=== PATIENT | female | born 1965 | race Caucasian/White ===

== ENCOUNTER 2016-04-10 15:52 | Emergency (ER) | payer OTHER ==
[2016-04-10] MEDS ORDERED: HYDROmorphone HCL 1 MG/ML SYRINGE (J1170) As Ordered ONE (20:50)
[2016-04-10] MEDS ORDERED: traMADol 50 MG TAB As Ordered ONE (22:33)
--- NOTE | 2016-04-10 22:42 | EDDOCDS ---
Nurse's Notes [facility] Name: Kimberly Houston Age: 50 yrs Sex: Female : 1965 Arrival Date: 04/10/2016 Time: 15:52 Bed I8 / 16 Private MD: Other - Complete Info On Cds Diagnosis: Muscle spasm of back Presentation: 04/10 16:31 Presenting complaint: Patient states: I sneezed now I can hardly move, I felt a small [facility] pain at the time (noonish) and it has gotten progressively worse. Acute neurological deficits are not present. Mechanism of Injury: No Mechanism of Injury. Adult Sepsis Screening: Patient has new or worsening altered mentation (1 point). Patient has a respiratory rate of greater than or equal to 22 (1 point). Systolic blood pressure is less than or equal to 100 (1 point). Patient has a qSOFA score of 0- Negative Sepsis Screen. Suicide/Homicide risk assessment- the patient denies having any suicidal and/or homicidal ideations and does not present with any other emotional, behavioral or mental health complaints. 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 Transition of care: patient was not received from another setting of care. 16:31 Acuity: VARUN Level 3 [facility] 16:31 Method Of Arrival: Walkin/Carried/Asstd [facility] Triage Assessment: 16:38 General: Appears in no apparent distress, uncomfortable, Behavior is cooperative, cjh pleasant. Pain: Location: back Pain currently is 9 out of 10 on a pain scale. Pain does not radiate. HIV screening NA for this visit. Neurological: No deficits noted. Respiratory: No deficits noted. Airway is patent Respiratory effort is even, unlabored, Respiratory pattern is regular, symmetrical. Derm: Skin is pink, warm & dry. Musculoskeletal: Range of motion intact in all extremities. moves slowly leans to left. 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 Lantus 42 units twice daily Sub-Q (Last dose: 04/10/2016 10:00) 2. Glimepiride Unknown Oral 1 tab twice a day - PMHx: Diabetes - IDDM: controlled; DJD; - PSHx: fusion to lower back; Tubal ligation; - Social history: Smoking status: Patient states former smoker of tobacco. No barriers to communication noted. - Family history: Not pertinent. - : The pt / caregiver states he / she is not on anticoagulants. Home medication list is obtained from the patient. - Exposure Risk Screening:: None identified. Screenin:13 Screening information is obtained from the patient. Fall risk: No risks identified. [facility] Assistance ADL's: requires no assistance with activities of daily living. Abuse/DV Screen: The patient / caregiver reports he/she is: not in a situation that causes fear, pain or injury. Nutritional screening: No deficits noted. Advance Directives: There is no active DNR order. home support is adequate. Assessment: 19:13 General: Appears in no apparent distress, uncomfortable, Behavior is appropriate for [facility] age, cooperative. Pain: Location: back Pain currently is 9 out of 10 on a pain scale. Respiratory: Airway is patent Respiratory effort is even, unlabored, Respiratory pattern is regular, symmetrical. Derm: Skin is pink, warm & dry. Musculoskeletal: Range of motion intact in all extremities. moving slowly due to back pain, states unable to find position of comfort. 20:56 General: Pt laying uncomfortably in bed. Pt medicated per orders. Aware of plan for ld5 xray. Call varma within reach. Will continue to monitor. 21:37 General: returned from X-Ray, states pain is much improved, resting on stretcher, [facility] awaiting results. Vital Signs: 15:54 BP 209 / 80 RA Sitting (auto/lg); Pulse 95 RA; Resp 18 S; Temp 97.5(O); Pulse Ox 99% on mt4 R/A; Weight 79.38 kg; Height 5 ft. 4 in. (162.56 cm) (R); Pain 8/10; 19:25 BP 158 / 84 (man/); Pulse 80; Resp 20; Temp 99.1(TE); Pulse Ox 99% on R/A; Pain 9/10; kb5 21:37 BP 165 / 79; Pulse 74; Resp 16; Temp 99; Pulse Ox 96% ; Pain 4/10; cjh 22:29 BP 135 / 68; Pulse 79; Resp 18; Temp 98.1(TE); Pulse Ox 98% on R/A; Pain 4/10; albin 15:54 Body Mass Index 30.04 (79.38 kg, 162.56 cm) mt4 Vitals: 15:54 Log In Time: April 10, 2016 at 15:52. mt4 ED Course: 15:53 Patient visited by Mikayla Briones. mt4 15:53 Patient moved to Waiting mt4 15:54 Other - Complete Info On Cds is Private Physician. mt4 15:54 Patient moved to Pre RCE mt4 16:33 Triage Initiated [facility] 19:06 Patient moved to I8 / 16 cz 19:13 Patient visited by Basilia Villanueva,MANNIE. cj 19:13 The patient / caregiver is instructed regarding the plan of care and ED course. cjh 19:26 Patient visited by Andrei Tijerina PCA. kb5 20:11 Patient visited by Andrei Tijerina PCA. kb5 20:42 Danilo Taveras DO is Attending Physician. cs11 20:42 Patient visited by Danilo Taveras DO. cs11 20:56 Patient visited by Aleyda Zuñiga RN. ld5 21:37 Patient visited by Basilia Villanueva RN. cjh 22:29 Patient visited by Karyna Mock PCA. albin 22:39 No IV's were initiated during this patient's visit. No procedures done that require mb9 assistance. Administered Medications: 20:55 Drug: Dilaudid - HYDROmorphone 1 mg [hydromorphone 1 mg/mL injection syringe (1 mL)] ld5 Route: IM; Site: left gluteus; 21:37 Follow up: Response: Confirmed pt not driving.; No Adverse Reaction; Pain is decreased [facility] 22:39 Drug: traMADol 50mg- 4 pack 1 packets [tramadol 50 mg tablet (1 tabs)] {Co-Signature: lucero [email or web address] (Cristina Valle RN).} Route: PO; Order Results: There are currently no results for this order. Outcome: 22:15 Discharge ordered by Provider. cs11 22:39 Discharge Assessment: Patient awake, alert and oriented x 3. No cognitive and/or mb9 functional deficits noted. Patient verbalized understanding of disposition instructions. patient administered narcotics - yes. Pt provided with safe discharge. The following High Risk Discharge criteria are identified: None. Discharged to home ambulatory, with significant other. Condition: good Condition: stable Condition: improved. Discharge instructions given to patient, Instructed on discharge instructions, follow up and referral plans. medication usage, no driving heavy equipment, Demonstrated understanding of instructions, medications, Pt was receptive of discharge instructions/ teaching. No special radiology studies were completed. Property :Personal belongings accompany Pt. 22:41 Patient left the ED. mb9 Signatures: Hardy Norton, RN RN cz Andrei Tijerina, LEAN FACILITATOR LEAN FACILITATOR kb5 Mikayla Briones mt4 Aleyda Zuñiga,RN RN ld5 Karyna Mock, LEAN FACILITATOR LEAN FACILITATOR albin Basilia Villanueva,RN RN [facility] Danilo Taveras, DO cs11 David RitchieRN RN mb9 Cristina Valle RN [email or web address] MTDD
--- NOTE | 2016-04-10 22:42 | EDDOCDS ---
Physician Documentation [facility] Name: Kimberly Houston Age: 50 yrs Sex: Female : 1965 Arrival Date: 04/10/2016 Time: 15:52 Bed I8 / 16 Private MD: Other - Complete Info On Cds Disposition: 04/10/16 22:15 Discharged to Home/Self Care. Impression: Muscle spasm of back. - Condition is Stable. - Medication Reconciliation, Local Pharmacy Hours form. - Follow up: Private Physician; When: Call to arrange an appointment; Reason: Recheck today's complaints. - Problem is an ongoing problem. - Symptoms have improved. Historical: - Allergies: NSAIDS (can't take due to colitis); - Home Meds: 1. Lantus 42 units twice daily Sub-Q (Last dose: 04/10/2016 10:00) 2. Glimepiride Unknown Oral 1 tab twice a day - PMHx: Diabetes - IDDM: controlled; DJD; - PSHx: fusion to lower back; Tubal ligation; - Social history: Smoking status: Patient states former smoker of tobacco. No barriers to communication noted. - Family history: Not pertinent. - : The pt / caregiver states he / she is not on anticoagulants. Home medication list is obtained from the patient. - Exposure Risk Screening:: None identified. 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 4 in. (162.56 cm) (R); Pain 8/10; 19:25 BP 158 / 84 (man/); Pulse 80; Resp 20; Temp 99.1(TE); Pulse Ox 99% on R/A; Pain 9/10; kb5 21:37 BP 165 / 79; Pulse 74; Resp 16; Temp 99; Pulse Ox 96% ; Pain 4/10; cjh 22:29 BP 135 / 68; Pulse 79; Resp 18; Temp 98.1(TE); Pulse Ox 98% on R/A; Pain 4/10; albin 15:54 Body Mass Index 30.04 (79.38 kg, 162.56 cm) mt4 MDM: 20:46 Dilaudid - HYDROmorphone 1 mg IM once ordered. cs11 20:48 Spine, Lumbosacral, Partial Ordered. EDMS 22:32 traMADol 50mg- 4 pack 1 packets PO once; Dispense with patient. Take per package cs11 instructions. ordered. Administered Medications: 20:55 Drug: Dilaudid - HYDROmorphone 1 mg [hydromorphone 1 mg/mL injection syringe (1 mL)] ld5 Route: IM; Site: left gluteus; 21:37 Follow up: Response: Confirmed pt not driving.; No Adverse Reaction; Pain is decreased [facility] 22:39 Drug: traMADol 50mg- 4 pack 1 packets [tramadol 50 mg tablet (1 tabs)] {Co-Signature: lucero [email or web address] (Cristina Valle RN).} Route: PO; Signatures: Dispatcher [employer] EDMI Basilia Villanueva RN RN [facility] Danilo Taveras DO DO cs11 David Ritchie RN RN mb9 Aleyda Zuñiga RN ld5 Cristina Valle RN [email or web address] MTDD
--- NOTE | 2016-04-11 16:13 | REP ---
Lumbar spine three views AP and lateral projections: Comparison is 11/01/2011. Surgical fusion at L4-L5 and S1 is again noted, unchanged. Ligation clips are again noted in the pelvis, unchanged. Vertebral body heights, interspacing alignment otherwise normal and unchanged. There is a small degenerative disc calcification at D12-L1 and is compatible with degenerative disc disease. This is unchanged. The pedicles, facets and sacroiliac articulations are otherwise unremarkable. Signed by Sergio Connolly MD 04/11/2016 04:04 P
--- NOTE | 2016-04-12 23:43 | EDDOCDS ---
Physician Documentation [facility] Name: Kimberly Houston Age: 50 yrs Sex: Female : 1965 Arrival Date: 04/10/2016 Time: 15:52 Bed I8 / 16 Private MD: Other - Complete Info On Cds Disposition: 04/10/16 22:15 Discharged to Home/Self Care. Impression: Muscle spasm of back. - Condition is Stable. - Medication Reconciliation, Local Pharmacy Hours form. - Follow up: Private Physician; When: Call to arrange an appointment; Reason: Recheck today's complaints. - Problem is an ongoing problem. - Symptoms have improved. Historical: - Allergies: NSAIDS (can't take due to colitis); - Home Meds: 1. Lantus 42 units twice daily Sub-Q (Last dose: 04/10/2016 10:00) 2. Glimepiride Unknown Oral 1 tab twice a day - PMHx: Diabetes - IDDM: controlled; DJD; - PSHx: fusion to lower back; Tubal ligation; - Social history: Smoking status: Patient states former smoker of tobacco. No barriers to communication noted. - Family history: Not pertinent. - : The pt / caregiver states he / she is not on anticoagulants. Home medication list is obtained from the patient. - Exposure Risk Screening:: None identified. 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 4 in. (162.56 cm) (R); Pain 8/10; 19:25 BP 158 / 84 (man/); Pulse 80; Resp 20; Temp 99.1(TE); Pulse Ox 99% on R/A; Pain 9/10; kb5 21:37 BP 165 / 79; Pulse 74; Resp 16; Temp 99; Pulse Ox 96% ; Pain 4/10; cjh 22:29 BP 135 / 68; Pulse 79; Resp 18; Temp 98.1(TE); Pulse Ox 98% on R/A; Pain 4/10; albin 15:54 Body Mass Index 30.04 (79.38 kg, 162.56 cm) mt4 MDM: 20:46 Dilaudid - HYDROmorphone 1 mg IM once ordered. cs11 20:48 Spine, Lumbosacral, Partial Ordered. EDMS 22:32 traMADol 50mg- 4 pack 1 packets PO once; Dispense with patient. Take per package cs11 instructions. ordered. 04/11 05:07 [facility] Payment Agreement was scanned into [employer] and attached to record. [facility] 05:07 Financial registration complete. gjb 16:12 T-Sheet-- Draft Copy was scanned into [employer] and attached to record. klr Administered Medications: 04/10 20:55 Drug: Dilaudid - HYDROmorphone 1 mg [hydromorphone 1 mg/mL injection syringe (1 mL)] ld5 Route: IM; Site: left gluteus; 21:37 Follow up: Response: Confirmed pt not driving.; No Adverse Reaction; Pain is decreased [facility] 22:39 Drug: traMADol 50mg- 4 pack 1 packets [tramadol 50 mg tablet (1 tabs)] {Co-Signature: lucero [email or web address] (Cristina Valle RN).} Route: PO; Signatures: Dispatcher [employer] EDMS Basilia VillanuevaRN RN [facility] Danilo Taveras DO DO cs11 David RitchieRN RN Maria Elena Fishman Kathie klr Dickerson, Laura RN ld5 Cristina Valle RN [email or web address] The chart was reviewed and I authenticate all verbal orders and agree with the evaluation and treatment provided.Attachments: 04/11 05:07 [facility] Payment Agreement gj 16:12 T-Sheet-- Draft Copy klr Chart Complete MTDD
--- NOTE | 2016-04-12 23:43 | EDDOCDS ---
Physician Documentation [facility] Name: Kimberly Houston Age: 50 yrs Sex: Female : 1965 Arrival Date: 04/10/2016 Time: 15:52 Bed I8 / 16 Private MD: Other - Complete Info On Cds Disposition: 04/10/16 22:15 Discharged to Home/Self Care. Impression: Muscle spasm of back. - Condition is Stable. - Medication Reconciliation, Local Pharmacy Hours form. - Follow up: Private Physician; When: Call to arrange an appointment; Reason: Recheck today's complaints. - Problem is an ongoing problem. - Symptoms have improved. Historical: - Allergies: NSAIDS (can't take due to colitis); - Home Meds: 1. Lantus 42 units twice daily Sub-Q (Last dose: 04/10/2016 10:00) 2. Glimepiride Unknown Oral 1 tab twice a day - PMHx: Diabetes - IDDM: controlled; DJD; - PSHx: fusion to lower back; Tubal ligation; - Social history: Smoking status: Patient states former smoker of tobacco. No barriers to communication noted. - Family history: Not pertinent. - : The pt / caregiver states he / she is not on anticoagulants. Home medication list is obtained from the patient. - Exposure Risk Screening:: None identified. 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 4 in. (162.56 cm) (R); Pain 8/10; 19:25 BP 158 / 84 (man/); Pulse 80; Resp 20; Temp 99.1(TE); Pulse Ox 99% on R/A; Pain 9/10; kb5 21:37 BP 165 / 79; Pulse 74; Resp 16; Temp 99; Pulse Ox 96% ; Pain 4/10; cjh 22:29 BP 135 / 68; Pulse 79; Resp 18; Temp 98.1(TE); Pulse Ox 98% on R/A; Pain 4/10; albin 15:54 Body Mass Index 30.04 (79.38 kg, 162.56 cm) mt4 MDM: 20:46 Dilaudid - HYDROmorphone 1 mg IM once ordered. cs11 20:48 Spine, Lumbosacral, Partial Ordered. EDMS 22:32 traMADol 50mg- 4 pack 1 packets PO once; Dispense with patient. Take per package cs11 instructions. ordered. 04/11 05:07 [facility] LICENSE OF [facility] Payment Agreement was scanned into [employer] and attached to record. [facility] 05:07 Financial registration complete. gjb 16:12 T-Sheet-- Draft Copy was scanned into [employer] and attached to record. klr Administered Medications: 04/10 20:55 Drug: Dilaudid - HYDROmorphone 1 mg [hydromorphone 1 mg/mL injection syringe (1 mL)] ld5 Route: IM; Site: left gluteus; 21:37 Follow up: Response: Confirmed pt not driving.; No Adverse Reaction; Pain is decreased [facility] 22:39 Drug: traMADol 50mg- 4 pack 1 packets [tramadol 50 mg tablet (1 tabs)] {Co-Signature: lucero [email or web address] (Cristina Valle RN).} Route: PO; Signatures: Dispatcher [employer] EDMS Basilia VillanuevaRN RN [facility] Danilo Taveras DO DO cs11 David RitchieRN RN Maria Elena Fishman Kathie klr Dickerson, Laura RN ld5 Cristina Valle RN [email or web address] The chart was reviewed and I authenticate all verbal orders and agree with the evaluation and treatment provided.Attachments: 04/11 05:07 ON LICENSE OF [facility] Payment Agreement gj 16:12 T-Sheet-- Draft Copy klr Chart Complete MTDD
--- NOTE | 2016-04-12 23:44 | EDDOCDS ---
Nurse's Notes [facility] Name: Kimberly Houston Age: 50 yrs Sex: Female : 1965 Arrival Date: 04/10/2016 Time: 15:52 Bed I8 / 16 Private MD: Other - Complete Info On Cds Diagnosis: Muscle spasm of back Presentation: 04/10 16:31 Presenting complaint: Patient states: I sneezed now I can hardly move, I felt a small [facility] pain at the time (noonish) and it has gotten progressively worse. Acute neurological deficits are not present. Mechanism of Injury: No Mechanism of Injury. Adult Sepsis Screening: Patient has new or worsening altered mentation (1 point). Patient has a respiratory rate of greater than or equal to 22 (1 point). Systolic blood pressure is less than or equal to 100 (1 point). Patient has a qSOFA score of 0- Negative Sepsis Screen. Suicide/Homicide risk assessment- the patient denies having any suicidal and/or homicidal ideations and does not present with any other emotional, behavioral or mental health complaints. Status: Patient is not a director of radio services or dependent. Transition of care: patient was not received from another setting of care. 16:31 Acuity: VARUN Level 3 [facility] 16:31 Method Of Arrival: Walkin/Carried/Asstd [facility] Triage Assessment: 16:38 General: Appears in no apparent distress, uncomfortable, Behavior is cooperative, cjh pleasant. Pain: Location: back Pain currently is 9 out of 10 on a pain scale. Pain does not radiate. HIV screening NA for this visit. Neurological: No deficits noted. Respiratory: No deficits noted. Airway is patent Respiratory effort is even, unlabored, Respiratory pattern is regular, symmetrical. Derm: Skin is pink, warm & dry. Musculoskeletal: Range of motion intact in all extremities. moves slowly leans to left. 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 Lantus 42 units twice daily Sub-Q (Last dose: 04/10/2016 10:00) 2. Glimepiride Unknown Oral 1 tab twice a day - PMHx: Diabetes - IDDM: controlled; DJD; - PSHx: fusion to lower back; Tubal ligation; - Social history: Smoking status: Patient states former smoker of tobacco. No barriers to communication noted. - Family history: Not pertinent. - : The pt / caregiver states he / she is not on anticoagulants. Home medication list is obtained from the patient. - Exposure Risk Screening:: None identified. Screenin:13 Screening information is obtained from the patient. Fall risk: No risks identified. [facility] Assistance ADL's: requires no assistance with activities of daily living. Abuse/DV Screen: The patient / caregiver reports he/she is: not in a situation that causes fear, pain or injury. Nutritional screening: No deficits noted. Advance Directives: There is no active DNR order. home support is adequate. Assessment: 19:13 General: Appears in no apparent distress, uncomfortable, Behavior is appropriate for [facility] age, cooperative. Pain: Location: back Pain currently is 9 out of 10 on a pain scale. Respiratory: Airway is patent Respiratory effort is even, unlabored, Respiratory pattern is regular, symmetrical. Derm: Skin is pink, warm & dry. Musculoskeletal: Range of motion intact in all extremities. moving slowly due to back pain, states unable to find position of comfort. 20:56 General: Pt laying uncomfortably in bed. Pt medicated per orders. Aware of plan for ld5 xray. Call varma within reach. Will continue to monitor. 21:37 General: returned from X-Ray, states pain is much improved, resting on stretcher, [facility] awaiting results. Vital Signs: 15:54 BP 209 / 80 RA Sitting (auto/lg); Pulse 95 RA; Resp 18 S; Temp 97.5(O); Pulse Ox 99% on mt4 R/A; Weight 79.38 kg; Height 5 ft. 4 in. (162.56 cm) (R); Pain 8/10; 19:25 BP 158 / 84 (man/); Pulse 80; Resp 20; Temp 99.1(TE); Pulse Ox 99% on R/A; Pain 9/10; kb5 21:37 BP 165 / 79; Pulse 74; Resp 16; Temp 99; Pulse Ox 96% ; Pain 4/10; cjh 22:29 BP 135 / 68; Pulse 79; Resp 18; Temp 98.1(TE); Pulse Ox 98% on R/A; Pain 4/10; albin 15:54 Body Mass Index 30.04 (79.38 kg, 162.56 cm) mt4 Vitals: 15:54 Log In Time: April 10, 2016 at 15:52. mt4 ED Course: 15:53 Patient visited by Mikayla Briones. mt4 15:53 Patient moved to Waiting mt4 15:54 Other - Complete Info On Cds is Private Physician. mt4 15:54 Patient moved to Pre RCE mt4 16:33 Triage Initiated cjh 19:06 Patient moved to I8 / 16 cz 19:13 Patient visited by Basilia Villanueva,MANNIE. cjh 19:13 The patient / caregiver is instructed regarding the plan of care and ED course. cjh 19:26 Patient visited by Andrei Tijerina PCA. kb5 20:11 Patient visited by Andrei Tijerina PCA. kb5 20:42 Danilo Taveras DO is Attending Physician. cs11 20:42 Patient visited by Danilo Taveras DO. cs11 20:56 Patient visited by Aleyda Zuñiga RN. ld5 21:37 Patient visited by Basilia Villanueva,MANNIE. cjh 22:29 Patient visited by Karyna Mock PCA. albin 22:39 No IV's were initiated during this patient's visit. No procedures done that require mb9 assistance. 04/11 04:59 Patient name changed from Kimberly\S\Rebecca\S\Celso\S\ to Kimberly\S\M\S\[place]. EDMS 05:07 [facility] Payment Agreement was scanned into [employer] and attached to record. gjb 16:12 T-Sheet-- Draft Copy was scanned into [employer] and attached to record. klr 16:49 Spine, Lumbosacral, Partial Returned. EDMS Administered Medications: 04/10 20:55 Drug: Dilaudid - HYDROmorphone 1 mg [hydromorphone 1 mg/mL injection syringe (1 mL)] ld5 Route: IM; Site: left gluteus; 21:37 Follow up: Response: Confirmed pt not driving.; No Adverse Reaction; Pain is decreased cjh 22:39 Drug: traMADol 50mg- 4 pack 1 packets [tramadol 50 mg tablet (1 tabs)] {Co-Signature: mb9 js15 (Cristina Valle RN).} Route: PO; Order Results: Radiology Order: Spine, Lumbosacral, Partial Test: Spine, Lumbosacral, Partial REASON FOR EXAMINATION: Deformity/Swelling; Lumbar spine three views AP and lateral projections:; ; Comparison is 11/01/2011.; ; Surgical fusion at L4-L5 and S1 is again noted, unchanged. Ligation clips are; again noted in the pelvis, unchanged.; ; Vertebral body heights, interspacing alignment otherwise normal and unchanged.; There is a small degenerative disc calcification at D12-L1 and is compatible; with degenerative disc disease. This is unchanged.; ; The pedicles, facets and sacroiliac articulations are otherwise unremarkable.; ; ; Signed by; Sergio Connolly MD 04/11/2016 04:04 P; Outcome: 22:15 Discharge ordered by Provider. cs11 22:39 Discharge Assessment: Patient awake, alert and oriented x 3. No cognitive and/or mb9 functional deficits noted. Patient verbalized understanding of disposition instructions. patient administered narcotics - yes. Pt provided with safe discharge. The following High Risk Discharge criteria are identified: None. Discharged to home ambulatory, with significant other. Condition: good Condition: stable Condition: improved. Discharge instructions given to patient, Instructed on discharge instructions, follow up and referral plans. medication usage, no driving heavy equipment, Demonstrated understanding of instructions, medications, Pt was receptive of discharge instructions/ teaching. No special radiology studies were completed. Property :Personal belongings accompany Pt. 22:41 Patient left the ED. mb9 Signatures: Dispatcher [employer] EDMS Hardy Norton RN RN cz Bancroft, Kristopher, DISTRICT OPERATIONS MANAGER DISTRICT OPERATIONS MANAGER kb5 Mikayla Briones mt4 Aleyda Zuñiga RN RN ld5 Karyna Mock, DISTRICT OPERATIONS MANAGER DISTRICT OPERATIONS MANAGER Basilia Rocha RN RN cjh Schiff, Craig, DO cs11 David Ritchie RN RN mb9 Maria Elena Brice Kathie klr Julia Sweeney RN js15 Chart Complete MTDD
== END 2016-04-10 22:41 | disposition home or self-care (01) ==
LOC: M ED 15:52
DX: M62.830 Muscle spasm of back (principal); M54.5 Low back pain; G89.29 Other chronic pain; E11.9 Type 2 diabetes mellitus without complications; Z87.891 Personal history of nicotine dependence; Z79.899 Other long term (current) drug therapy; Z79.4 Long term (current) use of insulin; Z88.8 Allergy status to other drugs, medicaments and biological substances
CPT/HCPCS: 72100; 96372; 99283; J1170

== ENCOUNTER → 2016-08-20 | Outpatient (REF) | payer OTHER ==
[2016-08-20 13:16] LABS: CORTISOL AM 15.2 UG/DL (4.3-22.4); ESTRADIOL < 19.0 PG/ML; FOLLICLE STIMULATING HORMONE 41.2 mIU/mL; PROGESTERONE 0.3 NG/ML
[2016-08-20 14:01] LABS: ALBUMIN 3.8 GM/DL (3.2-5.2); ALBUMIN/GLOBULIN RATIO 1.09 (1.00-1.93); ALKALINE PHOSPHATASE 67 U/L (45-117); ALT/SGPT 37 U/L (12-78); ANION GAP 8 MEQ/L (8-16); AST/SGOT 27 U/L (15-37); BILIRUBIN,TOTAL 0.5 MG/DL (0.2-1.0); BLOOD UREA NITROGEN 9 MG/DL (7-18); CALCIUM LEVEL 9.1 MG/DL (8.5-10.1); CARBON DIOXIDE LEVEL 28 MEQ/L (21-32); CHLORIDE LEVEL 103 MEQ/L (98-107); CREATININE FOR GFR 0.65 MG/DL (0.55-1.02); FREE T4 0.95 NG/DL (0.76-1.46); GLOMERULAR FILTRATION RATE > 60.0 (>58); GLUCOSE, FASTING 124 MG/DL (70-105); POTASSIUM SERUM 4.5 MEQ/L (3.5-5.1); SODIUM LEVEL 139 MEQ/L (136-145); TOTAL PROTEIN 7.3 GM/DL (6.4-8.2)
[2016-08-24 00:06] LABS: ESTRONE SERUM 67 pg/mL (.)
== END ==
LOC: M LAB REF 12:14
PROVIDERS: ATTEND Obstetrics & Gynecology
DX: N95.9 Unspecified menopausal and perimenopausal disorder (principal)

== ENCOUNTER → 2016-09-17 | Day surgery (SDC) | payer OTHER ==
[~2016-09-17] VITALS: Ht 162.6 cm; Wt 79.4 kg
[~2016-09-17] MED LIST: ACETAMINOPHEN 650 MG SUPP As Ordered ONE; ATOR1TAB21 PO; GLIM4TAB PO; HYDROmorphone HCL 1 MG/ML SYRINGE (J1170) IV PRN; IBUP80TA PO; IBUPROFEN 800 MG TAB PO SCH; INVO100T PO; KETOROLAC 60 MG/2 ML VIAL (J1885) As Ordered ONE; LANTINJ4 SC; LIDOCAINE 2% INJ 100 MG/5 ML SDV (FOR ANES.) As Ordered ONE; LR 1,000 ML IV ONE; LR 1,000 ML IV SCH; MIDAZOLAM INJ 2 MG/2 ML VIAL (J2250) As Ordered ONE; OMEP20CA3 PO; ONDANSETRON 4MG/2ML VIAL (J2405) As Ordered ONE; ONDANSETRON 4MG/2ML VIAL (J2405) IV PRN; PERCOCET 5MG/325MG TAB As Ordered ONE; PERCOCET 5MG/325MG TAB PO PRN; PROG100C; PROPOFOL 200 MG/20 ML VIAL As Ordered ONE; VITA100067 PO; dexameTHASONE 4 MG/ML 1ML VIAL (J1100) As Ordered ONE; fentaNYL 100 MCG/2 ML INJECTION (J3010) As Ordered ONE; fentaNYL 100 MCG/2 ML INJECTION (J3010) IV PRN
[2016-09-17 10:15] LABS: MEAN CORPUSCULAR HEMOGLOBIN 28.8 pg (27.0-33.0); MEAN CORPUSCULAR HGB CONC 33.2 g/dl (32.0-36.5); MEAN CORPUSCULAR VOLUME 86.7 fl (80.0-96.0); RED CELL DISTRIBUTION WIDTH 12.7 % (11.5-14.5); WHITE BLOOD COUNT 5.6 K/mm3 (4.0-10.0)
[2016-09-17 10:21] LABS: ALBUMIN 4.1 GM/DL (3.2-5.2); ALBUMIN/GLOBULIN RATIO 1.21 (1.00-1.93); ALKALINE PHOSPHATASE 60 U/L (45-117); ALT/SGPT 30 U/L (12-78); ANION GAP 7 MEQ/L (8-16); AST/SGOT 20 U/L (15-37); BILIRUBIN,TOTAL 0.3 MG/DL (0.2-1.0); BLOOD UREA NITROGEN 15 MG/DL (7-18); CALCIUM LEVEL 8.9 MG/DL (8.5-10.1); CARBON DIOXIDE LEVEL 30 MEQ/L (21-32); CHLORIDE LEVEL 102 MEQ/L (98-107); CREATININE FOR GFR 0.87 MG/DL (0.55-1.02); GLOMERULAR FILTRATION RATE > 60.0 (>58); GLUCOSE, FASTING 159 MG/DL (70-105); POTASSIUM SERUM 3.7 MEQ/L (3.5-5.1); SODIUM LEVEL 139 MEQ/L (136-145); TOTAL PROTEIN 7.5 GM/DL (6.4-8.2)
--- NOTE | 2016-09-17 12:29 | RO ---
DATE OF PROCEDURE: 09/17/2016 Kimberly is a 50-year-old female with postmenopausal bleeding. After counseling in the office, a decision was made for dilation and curettage (D and C,) hysteroscopy. PREOPERATIVE DIAGNOSIS: 1. Postmenopausal bleeding. POSTOPERATIVE DIAGNOSIS: 1. Postmenopausal bleeding. PROCEDURE: 1. Dilation and curettage (D and C). 2. Hysteroscopy. SURGEON: Dr. Beltran Castillo. FABRIC FINISHER: ANESTHESIA: General. COMPLICATIONS: None. ESTIMATED BLOOD LOSS: Less than 10 mL. SPECIMEN SENT TO THE LAB: Endometrial curetting. Straight catheter bladder for approximately 40 mL. PROCEDURE: After obtaining informed consent, the patient was taken to the operating room where general anesthetic was found to be adequate. She was then draped and prepped in usual sterile fashion in dorsal lithotomy position. Straight catheter bladder was performed for approximately 40 mL clear urine. We then placed a weighted speculum in the posterior fornix of the vagina using a Alvarez retractor. The anterior lip of the cervix and then grasped with a single-tooth tenaculum. The uterus was sound to approximately 7 cm in size. The cervix was serially dilated. The hysteroscope was inserted. Bilateral tubal ostia visualized. No endometrial cavity abnormalities noted. At this point, the hysteroscope was removed and a sharp curettage of the endometrial lining was done. The tissues were sent to pathology for final diagnosis. Good hemostasis noted. The patient tolerated the procedure well. She was then transferred to recovery room in stable condition.
[2016-09-17 14:00] VITALS: BP 146/79
== END ==
LOC: M SDC 09:17
PROVIDERS: ATTEND Obstetrics & Gynecology
DX: N95.0 Postmenopausal bleeding (principal); E11.9 Type 2 diabetes mellitus without complications; E78.00 Pure hypercholesterolemia, unspecified; K21.9 Gastro-esophageal reflux disease without esophagitis; K52.9 Noninfective gastroenteritis and colitis, unspecified; M54.9 Dorsalgia, unspecified; G43.909 Migraine, unspecified, not intractable, without status migrainosus; Z87.891 Personal history of nicotine dependence; Z79.899 Other long term (current) drug therapy; Z79.4 Long term (current) use of insulin
CPT/HCPCS: 36415; 58558; 80053; 85027; 86850; 86900; 86901; 88305; J1100; J1885; J2250; J2405; J3010

== ENCOUNTER → 2016-11-08 | Outpatient (REF) | payer OTHER ==
[~2016-11-08] MED LIST changes: -ACETAMINOPHEN 650 MG SUPP As Ordered ONE; -HYDROmorphone HCL 1 MG/ML SYRINGE (J1170) IV PRN; -IBUPROFEN 800 MG TAB PO SCH; -KETOROLAC 60 MG/2 ML VIAL (J1885) As Ordered ONE; -LIDOCAINE 2% INJ 100 MG/5 ML SDV (FOR ANES.) As Ordered ONE; -LR 1,000 ML IV ONE; -LR 1,000 ML IV SCH; -MIDAZOLAM INJ 2 MG/2 ML VIAL (J2250) As Ordered ONE; -ONDANSETRON 4MG/2ML VIAL (J2405) As Ordered ONE; -ONDANSETRON 4MG/2ML VIAL (J2405) IV PRN; -PERCOCET 5MG/325MG TAB As Ordered ONE; -PERCOCET 5MG/325MG TAB PO PRN; -PROPOFOL 200 MG/20 ML VIAL As Ordered ONE; -dexameTHASONE 4 MG/ML 1ML VIAL (J1100) As Ordered ONE; -fentaNYL 100 MCG/2 ML INJECTION (J3010) As Ordered ONE; -fentaNYL 100 MCG/2 ML INJECTION (J3010) IV PRN
[2016-11-08 14:05] LABS: PROGESTERONE 12.4 NG/ML
[2016-11-08 14:06] LABS: ESTRADIOL 73.8 PG/ML; FOLLICLE STIMULATING HORMONE 20.3 mIU/mL
== END ==
LOC: M SMT 12:50
PROVIDERS: ATTEND Obstetrics & Gynecology
DX: N95.9 Unspecified menopausal and perimenopausal disorder (principal)

== ENCOUNTER 2017-01-14 14:08 | Emergency (ER) | payer OTHER ==
[~2017-01-14] VITALS: Ht 162.6 cm; Wt 80.9 kg
[~2017-01-14 14:08] MED LIST changes: -PROG100C
[2017-01-14] MEDS ORDERED: INVO100T PO (14:28)
[2017-01-14] MEDS ORDERED: PROG100C (14:28)
[2017-01-14] MEDS ORDERED: diphenhydrAMINE INJ 50MG/ML VIAL (J1200) IV STA (15:42)
[2017-01-14] MEDS ORDERED: METOCLOPRAMIDE INJ 10MG/2ML VIAL (J2765) IV ONE (15:45)
[2017-01-14] MEDS ORDERED: methylPREDNISolone INJ 125 MG/2 ML VIAL (J2930) IV ONE (15:45)
[2017-01-14] MEDS ORDERED: NS 1,000 ML IV ONE (15:45)
[2017-01-14 16:06] LABS: BASO # 0.1 10^3/uL (0.0-0.2); BASO % 0.8 % (0.0-1.0); IMMATURE GRANULOCYTE % 0.3 % (0-0); LYMPH % 27.2 % (24.0-44.0); MEAN CORPUSCULAR HEMOGLOBIN 28.3 pg (27.0-33.0); MEAN CORPUSCULAR HGB CONC 32.7 g/dl (32.0-36.5); MEAN CORPUSCULAR VOLUME 86.6 fl (80.0-96.0); MONO # 0.5 10^3/uL (0.0-0.8); MONO % 6.1 % (0.0-5.0); NEUTROPHILS # 4.8 10^3/uL (1.8-7.7); NEUTROPHILS % 65.6 % (36.0-66.0); PLATELET COUNT, AUTOMATED 240 10^3/uL (150-450); RED CELL DISTRIBUTION WIDTH 12.4 % (11.5-14.5); WHITE BLOOD COUNT 7.3 10^3/uL (4.0-10.0)
[2017-01-14 16:23] LABS: INR 0.93
[2017-01-14 16:25] LABS: ANION GAP 7 MEQ/L (8-16); BLOOD UREA NITROGEN 10 MG/DL (7-18); CALCIUM LEVEL 9.4 MG/DL (8.5-10.1); CARBON DIOXIDE LEVEL 30 MEQ/L (21-32); CHLORIDE LEVEL 103 MEQ/L (98-107); CREATININE FOR GFR 0.83 MG/DL (0.55-1.02); GLOMERULAR FILTRATION RATE > 60.0 (>58); GLUCOSE, FASTING 117 MG/DL (70-105); POTASSIUM SERUM 3.7 MEQ/L (3.5-5.1); SODIUM LEVEL 140 MEQ/L (136-145)
[2017-01-14 16:32] LABS: ERYTHROCYTE SEDIMENTATION RATE 12 mm/hr (0-20)
[2017-01-14] MEDS ORDERED: ACETAMINOPHEN 325 MG TAB PO ONE (19:15)
--- NOTE | 2017-01-14 19:19 | REP ---
MR angiography the brain without contrast: History: Son headache. Previous history of migraines. No comparisons MR ANGIO. Technique: 3-D [id number] MR angiography of the brain is acquired in the usual fashion and maximal intensity projection images were generated in rotational format about the vertical and horizontal axes. In addition, source axial T1-weighted images are viewed in cine mode. MR angiographic findings: The distal vertebral arteries are patent and co-dominant. Basilar artery is a little tortuous but widely patent. The posterior cerebral and superior cerebellar vessels are normal and symmetric. The distal internal carotid arteries are unremarkable. Anterior and middle cerebral arteries appear intact. There is no visible ling aneurysm or arteriovenous malformation. Impression: Unremarkable MR angiography the brain. Signed by Bob Gonzalez MD 01/14/2017 07:10 P
[2017-01-14 19:56] VITALS: BP 143/67
== END 2017-01-14 20:23 | disposition home or self-care (01) ==
LOC: M ED 14:08
DX: G43.909 Migraine, unspecified, not intractable, without status migrainosus (principal); E11.9 Type 2 diabetes mellitus without complications; Z79.4 Long term (current) use of insulin; Z79.890 Hormone replacement therapy; Z79.899 Other long term (current) drug therapy; Z88.8 Allergy status to other drugs, medicaments and biological substances
CPT/HCPCS: 70544; 80048; 85025; 85610; 85652; 85730; 86140; 86850; 86900; 86901; 96374; 96375; 99284; J1200; J2765; J2930

== ENCOUNTER → 2019-01-01 | Outpatient (REF) | payer OTHER ==
[~2019-01-01] MED LIST changes: -OMEP20CA3 PO; +OMEP20CA4 PO; +PROG1CAP8
[2019-01-01 13:53] LABS: BASO # 0.1 10^3/uL (0.0-0.2); BASO % 1.3 % (0.0-1.0); HEMOGLOBIN 14.7 g/dl (12.0-15.5); LYMPH % 32.3 % (24.0-44.0); MEAN CORPUSCULAR HEMOGLOBIN 28.6 pg (27.0-33.0); MEAN CORPUSCULAR HGB CONC 31.3 g/dl (32.0-36.5); MEAN CORPUSCULAR VOLUME 91.4 fl (80.0-96.0); MONO # 0.4 10^3/uL (0.0-0.8); MONO % 5.6 % (0.0-5.0); NEUTROPHILS # 3.8 10^3/uL (1.5-8.5); NEUTROPHILS % 60.6 % (36.0-66.0); PLATELET COUNT, AUTOMATED 250 10^3/uL (150-450); RED BLOOD COUNT 5.14 10^6/uL (4.00-5.40); WHITE BLOOD COUNT 6.3 10^3/uL (4.0-10.0)
[2019-01-01 14:04] LABS: ALT/SGPT 24 U/L (12-78); BILIRUBIN,TOTAL 0.3 MG/DL (0.2-1.0); BLOOD UREA NITROGEN 13 MG/DL (7-18); CALCIUM LEVEL 9.3 MG/DL (8.5-10.1); CARBON DIOXIDE LEVEL 30 MEQ/L (21-32); CHLORIDE LEVEL 106 MEQ/L (98-107); CHOLESTEROL LEVEL 206 MG/DL (<200); CREATININE FOR GFR 0.88 MG/DL (0.55-1.30); GLOMERULAR FILTRATION RATE > 60.0 (>51); GLUCOSE, FASTING 72 MG/DL (70-100); HDL CHOLESTEROL 43 MG/DL (>40); LDL CHOLESTEROL 120 MG/DL (<100); NON-HDL-C 163 MG/DL; POTASSIUM SERUM 4.2 MEQ/L (3.5-5.1); SODIUM LEVEL 142 MEQ/L (136-145); TOTAL PROTEIN 7.6 GM/DL (6.4-8.2); TRIGLYCERIDES LEVEL 214 MG/DL (<150)
[2019-01-01 14:14] LABS: HEMOGLOBIN A1c 7.4 %
== END ==
LOC: M LABDRWAD 13:05
PROVIDERS: ATTEND Nurse Practitioner Family
DX: M12.812 Other specific arthropathies, not elsewhere classified, left shoulder (principal); E11.65 Type 2 diabetes mellitus with hyperglycemia; E78.5 Hyperlipidemia, unspecified; I10 Essential (primary) hypertension

== ENCOUNTER → 2020-05-15 | Outpatient (REF) | payer OTHER ==
[~2020-05-15] MED LIST changes: -GLIM4TAB PO; +GLIM4TAB5 PO; +OMEP1CAP73 PO; -OMEP20CA4 PO
== END ==
LOC: M LAB REF 16:55
PROVIDERS: ATTEND Nurse Practitioner Family
DX: R30.0 Dysuria (principal)

== ENCOUNTER → 2020-10-30 | Outpatient (CLI) | payer OTHER ==
--- NOTE | 2020-10-30 11:39 | REP ---
INDICATION: RUQ ABD PAIN ? GB ABNORMALITY. COMPARISON: Comparison CT study May 16, 2015.. TECHNIQUE: Right upper quadrant sonogram. FINDINGS: Scanning through the right upper quadrant the abdomen demonstrates a normal size homogeneous liver. A normal sized thin walled gallbladder is seen without evidence of stone or polyp. Common bile duct is normal measuring 0.4 cm in greatest diameter. There is no evidence of ascites or right renal abnormality. The right kidney measures 10.3 x 5.7 x 4.9 cm. Limited views of pancreas show no abnormality. Pancreas is partially obscured by gas. IMPRESSION: Unremarkable right upper quadrant sonogram. <Electronically signed by Jarad Gonzalez > 10/30/20 [id number]
== END ==
LOC: M RAD 07:58
PROVIDERS: ATTEND Nurse Practitioner Family
DX: R10.9 Unspecified abdominal pain (principal)

== ENCOUNTER → 2022-11-03 | Outpatient (REF) | payer OTHER ==
[2022-11-03 21:13] LABS: APPEARANCE, URINE CLEAR (CLEAR); BACTERIA, URINE AUTO NEGATIVE (NEGATIVE); BILIRUBIN, URINE AUTO NEGATIVE (NEGATIVE); BLOOD, URINE BLOOD 1+ (NEGATIVE); COLOR, URINE STRAW (YELLOW); GLUCOSE, URINE (UA) AUTO 3+ mg/dL (NEGATIVE); KETONE, URINE AUTO NEGATIVE (NEGATIVE); LEUKOCYTE ESTERASE, URINE AUTO 2+ (NEGATIVE); MUCUS, URINE SMALL (NEGATIVE); NITRITE, URINE AUTO NEGATIVE (NEGATIVE); PROTEIN, URINE AUTO NEGATIVE (NEGATIVE); RBC, URINE AUTO 1 /HPF (0-3); SPECIFIC GRAVITY URINE AUTO 1.014 (1.002-1.035); SQUAMOUS EPITHELIAL CELL UR AU 0 /HPF (0-6); UROBILINOGEN, URINE AUTO 0.2 mg/dL (0.0-2.0); WBC, URINE AUTO 43 /HPF (0-3)
== END ==
LOC: M LAB REF 21:00
PROVIDERS: ATTEND Physician Assistant Medical
DX: N39.0 Urinary tract infection, site not specified (principal)

== ENCOUNTER → 2025-01-31 | Outpatient (CLI) | payer OTHER | LOC: M PLARAD 11:50 | PROVIDERS: ATTEND Nurse Practitioner Family | DX: G43.919 Migraine, unspecified, intractable, without status migrainosus (principal) ==